=== PATIENT | male | born 1985 | race Caucasian/White ===

== ENCOUNTER 2016-08-06 08:50 | Emergency (ER) | payer MEDICAID ==
[~2016-08-06] VITALS: Ht 170.2 cm; Wt 83.9 kg
[2016-08-06 08:55] VITALS: BP_SYST 153
--- NOTE | 2016-08-06 09:05 | NUR ---
Patient to ER bed 7 to gown for evaluation. Side rails up. Report given to Clarissa NASCIMENTO.
--- NOTE | 2016-08-06 09:07 | NUR ---
C/O sore throat x 1 day with cough. Denies fever, tolerating PO intake well. son has sore throat and has been prescribed Augmentin.
--- NOTE | 2016-08-06 09:08 | NUR ---
ER Dr. Ortega at bedside examining patient.
[2016-08-06 09:22] VITALS: BP_SYST 149
--- NOTE | 2016-08-06 09:26 | NUR ---
Patient given written and verbal discharge instructions and verbalizes understanding. ER MD discussed with patient the results and treatment provided. Patient in stable condition. ID arm band removed. Rx of motrin and augmentin given. Patient educated on pain management and to follow up with PMD. Pain Scale 6/10, will medicate at home. Opportunity for questions provided and answered.
== END 2016-08-06 09:22 | disposition home or self-care (01) ==
LOC: SED 08:50
DX: J02.8 Acute pharyngitis due to other specified organisms (principal); B96.89 Other specified bacterial agents as the cause of diseases classified elsewhere; J45.909 Unspecified asthma, uncomplicated; Z88.8 Allergy status to other drugs, medicaments and biological substances
CPT/HCPCS: 99283

== ENCOUNTER 2016-11-26 23:09 | Emergency (ER) | payer MEDICAID ==
[~2016-11-26] VITALS: Ht 170.2 cm; Wt 65.8 kg
--- NOTE | 2016-11-26 23:09 | NUR ---
Patient to ER bed 4 to gown for evaluation. Side rails up. Report given to Karuna NASCIMENTO.
--- NOTE | 2016-11-26 23:10 | NUR ---
ER MD Mayes at bedside evaluating the patient
[2016-11-26] MEDS ORDERED: NACL 0.9% 1,000 ML IV ONE (23:11)
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
[2016-11-26] MEDS ORDERED: ASPIRIN 81 MG TAB.CHEW PO ONE (23:15)
[2016-11-26 23:16] VITALS: BP_SYST 135
--- NOTE | 2016-11-26 23:20 | NUR ---
# 20 gauge angiocath placed to right hand. Use of asceptic technique. Opsite placed over site. Blood return noted. Blood for lab drawn from site. Flushed with 10 cc of normal saline. No evidence of infiltration noted. Patient tolerated well.
[2016-11-26 23:21] LABS: BILIRUBIN,URINE NEGATIVE (NEGATIVE); CLARITY/URINE SL HAZY (CLEAR); COLOR,URINE YELLOW (YELLOW); GLUCOSE,URINE NEGATIVE (NEGATIVE); KETONES,URINE NEGATIVE (NEGATIVE); LEUKOCYTE ESTERASE ,URINE NEGATIVE (NEGATIVE); NITRITE, URINE NEGATIVE (NEGATIVE); PROTEIN URINE TRACE (NEGATIVE); UROBILINOGEN,URINE 0.2 (0.2-1.0)
--- NOTE | 2016-11-26 23:27 | NUR ---
Patient off the unit for CT scan via wheelchair
[2016-11-26 23:42] LABS: BASOPHILS # (AUTO) 0.2 K/uL (0.0-0.2); BASOPHILS % (AUTO) 1.9 % (0.0-2.0); EOSINOPHILS # (AUTO) 0.3 K/uL (0.0-0.4); EOSINOPHILS % (AUTO) 2.9 % (0.0-4.0); HEMATOCRIT 44.8 % (36-54); HEMOGLOBIN 14.5 g/dL (14.0-18.0); LYMPHOCYTES # (AUTO) 2.3 K/uL (1.0-5.5); LYMPHOCYTES % (AUTO) 20.8 % (20.5-51.5); MEAN CORPUSCULAR HEMOGLOBIN 28 pg (27-31); MEAN CORPUSCULAR HGB CONC 33 % (32-36); MEAN CORPUSCULAR VOLUME 86 fL (79.0-98.0); MONOCYTES # (AUTO) 0.9 K/uL (0.0-1.0); MONOCYTES % (AUTO) 8.4 % (1.7-9.3); NEUTROPHILS # (AUTO) 7.1 K/uL (1.8-7.7); PLATELET COUNT (AUTO) 249 K/uL (130-430); RED BLOOD CELL COUNT(AUTO) 5.21 MIL/uL (4.2-6.2); RED CELL DISTRIBUTION WIDTH 12.4 % (9.0-15.0); WHITE BLOOD COUNT (AUTO) 10.8 K/uL (4.8-10.8)
[2016-11-26 23:46] LABS: BARBITURATE, URINE NEGATIVE (NEG <=200); BENZODIAZEPINE, URINE NEGATIVE (NEG <=150); CANNABINOID, URINE NEGATIVE (NEG <=50); COCAINE, URINE NEGATIVE (NEG <=150); METHAMPHETAMINES SCREEN,URINE NEGATIVE (NEG <=500); OPIATE, URINE NEGATIVE (NEG <=100); PHENCYCLIDINE SCREEN,URINE NEGATIVE (NEG <=25); UR TRICYCLIC ANTIDEPRESSANTS NEGATIVE (NEG <=300); URINE AMPHETAMINE NEGATIVE (NEG <=500); URINE METHADONE NEGATIVE (NEG <=200); URINE OXYCODONE SCREEN NEGATIVE (NEG <=100); URINE PROPOXYPHENE SCREEN NEGATIVE (NEG <=300)
--- NOTE | 2016-11-26 23:46 | NUR ---
Mother at bedside.
[2016-11-26 23:57] LABS: CALCIUM 9.3 mg/dL (8.4-11.0); CREATININE 0.88 mg/dL (0.55-1.30); POTASSIUM 4.2 mmol/L (3.5-5.1)
[2016-11-27 00:03] LABS: BLOOD, URINE TRACE (NEGATIVE)
[2016-11-27 00:03] LABS: ALBUMIN 4.2 g/dL (3.4-4.8); PHOSPHORUS 3.2 mg/dL (2.7-4.5); TOTAL BILIRUBIN 0.6 mg/dL (0.0-1.0); TOTAL PROTEIN, SERUM 7.7 g/dL (6.4-8.3)
--- NOTE | 2016-11-27 00:28 | NUR ---
Patient resting, no signs of acute distress. VS WNL.
[2016-11-27 00:38] LABS: BACTERIA,URINE FEW /HPF (None Seen); MUCUS,URINE None Seen /LPF (None Seen)
[2016-11-27 00:43] LABS: PROTHROMBIN TIME 10.7 SECS (9.5-12.5)
[2016-11-27 00:55] VITALS: BP_SYST 129
--- NOTE | 2016-11-27 00:55 | NUR ---
Patient given written and verbal discharge instructions and verbalizes understanding. ER MD Mayes discussed with patient the results and treatment provided. Patient in stable condition. ID arm band removed. IV catheter removed intact and dressing applied, no active bleeding. Rx of tylenol with codeine & zofran given. Patient educated on pain management and to follow up with PMD. Pain Scale 0/10. Opportunity for questions provided and answered.
== END 2016-11-27 00:55 | disposition home or self-care (01) ==
LOC: SED 23:09
DX: R55 Syncope and collapse (principal); N20.0 Calculus of kidney; J45.909 Unspecified asthma, uncomplicated; Z87.442 Personal history of urinary calculi; Z88.8 Allergy status to other drugs, medicaments and biological substances
CPT/HCPCS: 36415; 74176; 80053; 80307; 81000; 82150; 82550; 83690; 84100; 84484; 85025; 85610; 85730; 87086; 96360; 99285; J7030

== ENCOUNTER 2018-02-17 16:04 | Emergency (ER) | payer MEDICAID ==
[~2018-02-17] VITALS: Ht 170.2 cm; Wt 86.2 kg
[2018-02-17 16:16] VITALS: BP_SYST 141
--- NOTE | 2018-02-17 16:21 | NUR ---
Patient to ER bed 05 to gown for evaluation. Side rails up. Report given to AZAM Nicolas
--- NOTE | 2018-02-17 16:40 | NUR ---
Pt AAOx4 ambulated into ED c/o L flank pain x 2 weeks. Pt went to see MD for kidney stones, was given Cipro. Pt DC abx after 2 days because he vomited after each intake. Pt was given Zofran and Hettinger [facility] at [facility], but zofran does not work and refuses to take norco. Pt passed kidney stone x 2 days ago, but cannot tolerate pain. No other injuries/complaints per pt/noted. Will continue to monitor.
--- NOTE | 2018-02-17 16:48 | NUR ---
ER Dr. Beebe at bedside examining patient.
[2018-02-17] MEDS ORDERED: NACL 0.9% 1,000 ML IV ONE (17:15)
[2018-02-17] MEDS ORDERED: KETOROLAC TROMETHAMINE 30 MG VIAL IVP ONE (17:15)
[2018-02-17 17:16] LABS: BILIRUBIN,URINE NEGATIVE (NEGATIVE); BLOOD, URINE NEGATIVE (NEGATIVE); CLARITY/URINE CLEAR (CLEAR); COLOR,URINE YELLOW (YELLOW); GLUCOSE,URINE NEGATIVE (NEGATIVE); KETONES,URINE NEGATIVE (NEGATIVE); LEUKOCYTE ESTERASE ,URINE NEGATIVE (NEGATIVE); NITRITE, URINE NEGATIVE (NEGATIVE); PH,URINE 6.5 (5.0-8.0); PROTEIN URINE NEGATIVE (NEGATIVE); UROBILINOGEN,URINE 0.2 (0.2-1.0)
[2018-02-17 17:39] LABS: BASOPHILS # (AUTO) 0.1 K/uL (0.0-0.2); EOSINOPHILS # (AUTO) 0.2 K/uL (0.0-0.4); EOSINOPHILS % (AUTO) 1.9 % (0.0-4.0); HEMATOCRIT 43.4 % (36-54); HEMOGLOBIN 13.9 g/dL (14.0-18.0); LYMPHOCYTES # (AUTO) 1.9 K/uL (1.0-5.5); LYMPHOCYTES % (AUTO) 19.8 % (20.5-51.5); MEAN CORPUSCULAR HEMOGLOBIN 28 pg (27-31); MEAN CORPUSCULAR HGB CONC 32 % (32-36); MEAN CORPUSCULAR VOLUME 87 fL (79.0-98.0); MONOCYTES # (AUTO) 0.7 K/uL (0.0-1.0); MONOCYTES % (AUTO) 7.6 % (1.7-9.3); NEUTROPHILS # (AUTO) 6.6 K/uL (1.8-7.7); NEUTROPHILS % (AUTO) 69.7 % (40.0-70.0); PLATELET COUNT (AUTO) 267 K/uL (130-430); RED CELL DISTRIBUTION WIDTH 12.4 % (9.0-15.0); WHITE BLOOD COUNT (AUTO) 9.5 K/uL (4.8-10.8)
[2018-02-17 17:41] LABS: CALCIUM 9.3 mg/dL (8.4-11.0); CREATININE 0.95 mg/dL (0.55-1.30)
[2018-02-17 17:47] LABS: ALBUMIN 3.8 g/dL (3.4-4.8); TOTAL BILIRUBIN 0.3 mg/dL (0.0-1.0)
--- NOTE | 2018-02-17 18:33 | NUR ---
Note undone in EDM - 02/17/18 at 1851 by [email or web address] Patient given written and verbal discharge instructions and verbalizes understanding. ER MD Beebe discussed with patient the results and treatment provided. Patient in stable condition. ID arm band removed. IV catheter removed intact and dressing applied, no active bleeding. No Rx given. Patient educated on pain management and to follow up with PMD. Pain Scale 0. Opportunity for questions provided and answered. Medication side effect fact sheet provided.
[2018-02-17 19:40] VITALS: BP_SYST 134
--- NOTE | 2018-02-17 19:40 | NUR ---
Patient given written and verbal discharge instructions and verbalizes understanding. ER MD SHUKLA discussed with patient the results and treatment provided. Patient in stable condition. ID arm band removed. IV catheter removed intact and dressing applied, no active bleeding. Rx of TRAMADOL given. Patient educated on pain management and to follow up with PMD. Pain Scale 2/10. Opportunity for questions provided and answered. Medication side effect fact sheet provided.
== END 2018-02-17 19:40 | disposition home or self-care (01) ==
LOC: SED 16:04
DX: R10.9 Unspecified abdominal pain (principal); J45.909 Unspecified asthma, uncomplicated; R03.0 Elevated blood-pressure reading, without diagnosis of hypertension; Z88.8 Allergy status to other drugs, medicaments and biological substances
CPT/HCPCS: 36415; 74176; 80053; 81003; 85025; 96361; 96374; 99285; J1885; J7030

== ENCOUNTER 2018-09-01 07:53 | Emergency (ER) | payer MEDICAID ==
[~2018-09-01] VITALS: Ht 170.2 cm; Wt 83.9 kg
[2018-09-01 08:09] VITALS: BP_SYST 149
[2018-09-01] MEDS ORDERED: NACL 0.9% 1,000 ML IV SCH (08:13)
[2018-09-01] MEDS ORDERED: KETOROLAC TROMETHAMINE 30 MG VIAL IVP ONE (08:15)
[2018-09-01] MEDS ORDERED: VANCOMYCIN HCL 1 MG in D5W 250 ML IV ONE (08:15)
[2018-09-01] MEDS ORDERED: PIPERACILLIN/TAZO 4.5 GM in NS 100 ML IV ONE (08:15)
[2018-09-01 08:49] LABS: BASOPHILS # (AUTO) 0.1 K/uL (0.0-0.2); BASOPHILS % (AUTO) 0.8 % (0.0-2.0); EOSINOPHILS # (AUTO) 0.2 K/uL (0.0-0.4); EOSINOPHILS % (AUTO) 1.6 % (0.0-4.0); HEMATOCRIT 45.6 % (36-54); HEMOGLOBIN 14.8 g/dL (14.0-18.0); LYMPHOCYTES # (AUTO) 1.5 K/uL (1.0-5.5); LYMPHOCYTES % (AUTO) 12.8 % (20.5-51.5); MEAN CORPUSCULAR HEMOGLOBIN 28 pg (27-31); MEAN CORPUSCULAR HGB CONC 33 % (32-36); MEAN CORPUSCULAR VOLUME 86 fL (79.0-98.0); MONOCYTES # (AUTO) 0.9 K/uL (0.0-1.0); MONOCYTES % (AUTO) 8.1 % (1.7-9.3); NEUTROPHILS # (AUTO) 8.7 K/uL (1.8-7.7); NEUTROPHILS % (AUTO) 76.7 % (40.0-70.0); PLATELET COUNT (AUTO) 239 K/uL (130-430); RED CELL DISTRIBUTION WIDTH 13.3 % (9.0-15.0); WHITE BLOOD COUNT (AUTO) 11.4 K/uL (4.8-10.8)
[2018-09-01 09:04] LABS: CALCIUM 9.3 mg/dL (8.4-11.0); CREATININE 0.86 mg/dL (0.55-1.30); POTASSIUM 3.8 mmol/L (3.5-5.1)
[2018-09-01 09:50] VITALS: BP_SYST 140
== END 2018-09-01 09:50 | disposition home or self-care (01) ==
LOC: SED 07:53
DX: L03.116 Cellulitis of left lower limb (principal); J45.909 Unspecified asthma, uncomplicated; Z87.442 Personal history of urinary calculi; Z88.8 Allergy status to other drugs, medicaments and biological substances
CPT/HCPCS: 36415; 80048; 85025; 96365; 96375; 99283; J1885; J7030

== ENCOUNTER 2018-09-01 22:48 | Emergency (ER) | payer MEDICAID ==
[~2018-09-01] VITALS: Ht 167.6 cm; Wt 81.6 kg
[2018-09-01 23:12] VITALS: BP_SYST 145
[2018-09-02 00:20] VITALS: BP_SYST 138
== END 2018-09-02 00:20 | disposition home or self-care (01) ==
LOC: SED 22:48
DX: S90.462A Insect bite (nonvenomous), left great toe, initial encounter (principal); J45.909 Unspecified asthma, uncomplicated; Z87.442 Personal history of urinary calculi; Z88.8 Allergy status to other drugs, medicaments and biological substances; W57.XXXA Bitten or stung by nonvenomous insect and other nonvenomous arthropods, initial encounter; Y93.89 Activity, other specified; Y92.89 Other specified places as the place of occurrence of the external cause; Y99.8 Other external cause status
CPT/HCPCS: 87070-TC; 87186-TC; 99283

== ENCOUNTER 2018-10-15 17:49 | Emergency (ER) | payer MEDICAID ==
[~2018-10-15] VITALS: Ht 170.2 cm; Wt 83.9 kg
[2018-10-15 17:50] VITALS: BP_SYST 140
--- NOTE | 2018-10-15 17:50 | NUR ---
Babs melton in ED - 10/15/18 at 1828 by [email or web address] ELISSA Jamison at bedside examining patient.
--- NOTE | 2018-10-15 17:50 | NUR ---
Patient to ER bed 04 to gown for evaluation. Side rails up. Will assume care.
--- NOTE | 2018-10-15 17:55 | NUR ---
Patient brought in complaining of LLE discomfort secondary to a insect bite x 2 days. Denies any pain at this time. No other complaints/injuries per patient or as noted. Will continue to monitor.
--- NOTE | 2018-10-15 18:13 | NUR ---
ELISSA Jamison at bedside examining patient.
[2018-10-15 18:20] VITALS: BP_SYST 140
--- NOTE | 2018-10-15 18:20 | NUR ---
Patient given written and verbal discharge instructions and verbalizes understanding. ER MD Jamison discussed with patient the results and treatment provided. Patient in stable condition. ID arm band removed. Rx of Keflex given. Patient educated on pain management and to follow up with PMD in 3-5 days. Pain Scale 0/10 Opportunity for questions provided and answered. Medication side effect fact sheet provided.
== END 2018-10-15 18:20 | disposition home or self-care (01) ==
LOC: SED 17:49
DX: S80.862A Insect bite (nonvenomous), left lower leg, initial encounter (principal); L08.89 Other specified local infections of the skin and subcutaneous tissue; J45.909 Unspecified asthma, uncomplicated; R03.0 Elevated blood-pressure reading, without diagnosis of hypertension; Z87.442 Personal history of urinary calculi; W57.XXXA Bitten or stung by nonvenomous insect and other nonvenomous arthropods, initial encounter; Y93.89 Activity, other specified; Y92.89 Other specified places as the place of occurrence of the external cause; Y99.8 Other external cause status
CPT/HCPCS: 99283

== ENCOUNTER 2018-11-07 16:51 | Emergency (ER) | payer MEDICAID ==
[~2018-11-07] VITALS: Ht 170.2 cm; Wt 83.9 kg
[2018-11-07 17:05] VITALS: BP_SYST 155
--- NOTE | 2018-11-07 17:10 | NUR ---
Patient to ER bed 7 to gown for evaluation. Side rails up. Report given to Jesus NASCIMENTO.
--- NOTE | 2018-11-07 17:11 | NUR ---
Pt is here for swelling to right eye lid, moderate swelling noted to inner corner of the eye. Pt is resting in bed comfortable waiting for MD vu. Pt denied pain to area at moment.
--- NOTE | 2018-11-07 17:40 | NUR ---
ER Dr. Diana at bedside examining patient.
--- NOTE | 2018-11-07 17:45 | NUR ---
Note undone in EDM - 11/07/18 at 1757 by [email or web address] Patient given written and verbal discharge instructions and verbalizes understanding. ER discussed with patient the results and treatment provided. Patient in stable condition. ID arm band removed. Rx of Keflex, Prednisone given. Patient educated on pain management and to follow up with PMD. Pain Scale 0/10. Opportunity for questions provided and answered. Medication side effect fact sheet provided.
--- NOTE | 2018-11-07 17:55 | NUR ---
Patient given written and verbal discharge instructions and verbalizes understanding. ER MD discussed with patient the results and treatment provided. Patient in stable condition. ID arm band removed. Rx of Keflex, Prednisone given. Patient educated on pain management and to follow up with PMD. Pain Scale 0/10. Opportunity for questions provided and answered. Medication side effect fact sheet provided.
== END 2018-11-07 17:57 | disposition home or self-care (01) ==
LOC: SED 16:51
DX: L03.213 Periorbital cellulitis (principal); H00.011 Hordeolum externum right upper eyelid; R03.0 Elevated blood-pressure reading, without diagnosis of hypertension; J45.909 Unspecified asthma, uncomplicated; Z87.442 Personal history of urinary calculi; Z88.8 Allergy status to other drugs, medicaments and biological substances
CPT/HCPCS: 99283

== ENCOUNTER 2019-03-21 14:16 | Emergency (ER) | payer MEDICAID ==
[~2019-03-21] VITALS: Ht 170.2 cm; Wt 86.2 kg
[2019-03-21 14:42] VITALS: BP_SYST 120
--- NOTE | 2019-03-21 15:44 | NUR ---
BROUGHT BACK TO BED IN HALLWAY AND REPORT GIVEN TO ASHLEY
--- NOTE | 2019-03-21 15:50 | NUR ---
DR PETERSEN AT BEDSIDE FOR EVALUATION
[2019-03-21] MEDS ORDERED: VANCOMYCIN HCL 1,000 MG in NS 250 ML IV ONE (16:00)
--- NOTE | 2019-03-21 16:12 | NUR ---
pt arrived from home s/p possible sipder bite on Friday. Pt reports picking at the bite and noticied that the bite was getting worse.
--- NOTE | 2019-03-21 16:15 | NUR ---
# 20 gauge angiocath placed to LAC. Use of asceptic technique. Opsite placed over site. Blood return noted. Blood for lab drawn from site. Flushed with 10 cc of normal saline. No evidence of infiltration noted. Patient tolerated well.
[2019-03-21] MEDS ORDERED: VANCOMYCIN HCL 1000 MG/VIAL IV ONE (16:28)
--- NOTE | 2019-03-21 16:40 | NUR ---
Vanco currently infusing per MD order.
--- NOTE | 2019-03-21 17:18 | NUR ---
LLE wound cx collected and sent to the lab
[2019-03-21 17:52] VITALS: BP_SYST 120
--- NOTE | 2019-03-21 17:53 | NUR ---
Patient given written and verbal discharge instructions and verbalizes understanding. ER MD discussed with patient the results and treatment provided. Patient in stable condition. ID arm band removed. IV catheter removed intact and dressing applied, no active bleeding. Rx of Bactrim and Keflex given. Patient educated on pain management and to follow up with PMD. Pain Scale 3/10.Opportunity for questions provided and answered. Medication side effect fact sheet provided.
== END 2019-03-21 17:53 | disposition home or self-care (01) ==
LOC: SED 14:16
DX: L03.116 Cellulitis of left lower limb (principal); J45.909 Unspecified asthma, uncomplicated; Z88.8 Allergy status to other drugs, medicaments and biological substances
CPT/HCPCS: 36415; 87040; 87070; 96365; 99283; J3370; 87186-TC

== ENCOUNTER 2019-04-13 08:08 | Emergency (ER) | payer MEDICAID ==
[~2019-04-13] VITALS: Ht 170.2 cm; Wt 83.9 kg
[2019-04-13 08:20] VITALS: BP_SYST 120
--- NOTE | 2019-04-13 08:25 | NUR ---
pt arrives from home w/ c/o a sore throat x 2 days. Pt also reports a cough. Pt is currently afebrile.
--- NOTE | 2019-04-13 08:26 | NUR ---
Patient to ER bed 8 to gown for evaluation. Side rails up.
--- NOTE | 2019-04-13 08:28 | NUR ---
ER at bedside examining patient.
[2019-04-13 08:47] VITALS: BP_SYST 120
--- NOTE | 2019-04-13 08:49 | NUR ---
Patient given written and verbal discharge instructions and verbalizes understanding. ER MD discussed with patient the results and treatment provided. Patient in stable condition. ID arm band removed. Rx of Prednsione, Cepacol, and Zithromax given. Patient educated on pain management and to follow up with PMD. Pain Scale 3/10. Opportunity for questions provided and answered. Medication side effect fact sheet provided.
== END 2019-04-13 08:47 | disposition home or self-care (01) ==
LOC: SED 08:08
DX: K12.2 Cellulitis and abscess of mouth (principal); J45.909 Unspecified asthma, uncomplicated; Z88.8 Allergy status to other drugs, medicaments and biological substances
CPT/HCPCS: 99283

== ENCOUNTER 2019-07-09 13:17 | Emergency (ER) | payer MEDICAID ==
[~2019-07-09] VITALS: Ht 170.2 cm; Wt 89.8 kg
[2019-07-09 13:53] VITALS: BP_SYST 114
[2019-07-09] MEDS ORDERED: KETOROLAC TROMETHAMINE 60 MG/2 ML VIAL IM ONE (14:00)
[2019-07-09] MEDS ORDERED: PREDNISONE 20 MG TABLET PO ONE (14:00)
[2019-07-09 14:40] VITALS: BP_SYST 116
[2019-07-09] MEDS ORDERED: IBUPROFEN 600 MG TABLET PO ONE (15:00)
[2019-07-09] MEDS ORDERED: HYDROcodone/ACETAMIN 5-325 MG TAB (NORCO/ VICODIN) PO ONE (15:00)
== END 2019-07-09 14:40 | disposition home or self-care (01) ==
LOC: SED 13:17
DX: J11.1 Influenza due to unidentified influenza virus with other respiratory manifestations (principal); J45.909 Unspecified asthma, uncomplicated; Z87.442 Personal history of urinary calculi; Z88.8 Allergy status to other drugs, medicaments and biological substances
CPT/HCPCS: 71045; 99284; J1885; J7512

== ENCOUNTER 2019-10-25 07:34 | Emergency (ER) | payer MEDICAID ==
[~2019-10-25] VITALS: Ht 170.2 cm; Wt 85.3 kg
[2019-10-25 07:47] VITALS: BP_SYST 141
[2019-10-25 08:00] VITALS: BP_SYST 141
== END 2019-10-25 08:00 | disposition home or self-care (01) ==
LOC: SED 07:34
DX: L03.818 Cellulitis of other sites (principal); J45.909 Unspecified asthma, uncomplicated; Z57.2 Occupational exposure to dust; Z88.8 Allergy status to other drugs, medicaments and biological substances
CPT/HCPCS: 99283

== ENCOUNTER 2019-10-31 13:32 | Emergency (ER) | payer MEDICAID ==
[~2019-10-31] VITALS: Ht 170.2 cm; Wt 85.3 kg
--- NOTE | 2019-10-31 13:40 | NUR ---
RECEIVED AND IN ROOM
[2019-10-31 13:45] VITALS: BP_SYST 143
--- NOTE | 2019-10-31 13:53 | NUR ---
DR FLORES IN TO ASSESS
--- NOTE | 2019-10-31 13:54 | NUR ---
C/O RAST AND ITCHING TO ARM/LEGS. CALM, ALERT, RESP UNLABORED, COMMUNICATES CLEARLY, DENIES CP/SOB. WAS TREATED WITH ABX 1 WEEK AGO AND HERE TODAY DUE TO ITCHING.
[2019-10-31] MEDS ORDERED: PREDNISONE 20 MG TABLET PO ONE (14:30)
[2019-10-31] MEDS ORDERED: DIPHENHYDRAMINE HCL 50 MG CAPSULE PO ONE (14:30)
[2019-10-31 14:35] VITALS: BP_SYST 143
--- NOTE | 2019-10-31 14:39 | NUR ---
Patient given written and verbal discharge instructions and verbalizes understanding. ER MD discussed with patient the results and treatment provided. Patient in stable condition. Rx of BRANDONISONEESTELLEADRYL given. Patient educated on pain management and to follow up with PMD. Pain Scale . Opportunity for questions provided and answered. Medication side effect fact sheet provided.
== END 2019-10-31 14:35 | disposition home or self-care (01) ==
LOC: SED 13:32
DX: L25.9 Unspecified contact dermatitis, unspecified cause (principal); L29.9 Pruritus, unspecified; J45.909 Unspecified asthma, uncomplicated
CPT/HCPCS: 99283; J7512; Q0163

== ENCOUNTER 2019-12-06 15:06 | Emergency (ER) | payer MEDICAID ==
[~2019-12-06] VITALS: Ht 172.7 cm; Wt 86.2 kg
[2019-12-06 15:23] VITALS: BP_SYST 150
--- NOTE | 2019-12-06 15:55 | NUR ---
Patient to ER bed 07 to gown for evaluation. Side rails up.
--- NOTE | 2019-12-06 15:59 | NUR ---
RECEIVED AND IN ROOM, PT HERE FOR BACK PAIN, GUARDED GAIT BUT STEADY
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
[2019-12-06] MEDS ORDERED: fentaNYL CITRATE/PF 100 MCG/2 ML AMP IM ONE (16:30)
--- NOTE | 2019-12-06 17:41 | NUR ---
Patient given written and verbal discharge instructions and verbalizes understanding. ER MD discussed with patient the results and treatment provided. Patient in stable condition. ID arm band removed. Patient educated on pain management and to follow up with PMD. Pain Scale . Opportunity for questions provided and answered. Medication side effect fact sheet provided.
--- NOTE | 2019-12-06 17:42 | NUR ---
WALKED OFF UNIT STEADY WITH ACI
[2019-12-06 17:43] VITALS: BP_SYST 144
== END 2019-12-06 17:43 | disposition home or self-care (01) ==
LOC: SED 15:06
DX: M54.6 Pain in thoracic spine (principal); M54.5 Low back pain; J45.909 Unspecified asthma, uncomplicated; Z88.8 Allergy status to other drugs, medicaments and biological substances
CPT/HCPCS: 72100; 96372; 99283; J3010

== ENCOUNTER 2019-12-07 09:45 | Emergency (ER) | payer MEDICAID ==
[~2019-12-07] VITALS: Ht 172.7 cm; Wt 86.2 kg
[2019-12-07 09:52] VITALS: BP_SYST 129
[2019-12-07] MEDS ORDERED: LIDOCAINE 1% 10 MG/ML, 20 ML MDV INJ ONE (10:15)
[2019-12-07] MEDS ORDERED: KETOROLAC TROMETHAMINE 60 MG/2 ML VIAL IM ONE (10:45)
[2019-12-07 11:44] VITALS: BP_SYST 129
== END 2019-12-07 11:44 | disposition home or self-care (01) ==
LOC: SED 09:45
DX: S01.01XA Laceration without foreign body of scalp, initial encounter (principal); R55 Syncope and collapse; M54.6 Pain in thoracic spine; R11.2 Nausea with vomiting, unspecified; J45.909 Unspecified asthma, uncomplicated; Z87.442 Personal history of urinary calculi; V49.9XXA Car occupant (driver) (passenger) injured in unspecified traffic accident, initial encounter; Y93.89 Activity, other specified; Y92.413 State road as the place of occurrence of the external cause; Y99.8 Other external cause status
CPT/HCPCS: 12001; 70450; 72125; 72128; 93005; 96372; 99285; J1885; J2001

== ENCOUNTER 2019-12-15 08:02 | Emergency (ER) | payer MEDICAID ==
[~2019-12-15] VITALS: Ht 172.7 cm; Wt 86.2 kg
[2019-12-15 08:05] VITALS: BP_SYST 137
== END 2019-12-15 08:42 | disposition home or self-care (01) ==
LOC: SED 08:02
DX: Z48.02 Encounter for removal of sutures (principal); Z87.442 Personal history of urinary calculi
CPT/HCPCS: 99281

== ENCOUNTER 2020-02-01 14:00 | Emergency (ER) | payer MEDICAID ==
[~2020-02-01] VITALS: Ht 170.2 cm; Wt 90.3 kg
[2020-02-01 14:08] VITALS: BP_SYST 141
--- NOTE | 2020-02-01 14:12 | NUR ---
Patient came in for evaluation of his left ankle. Patient was at work today and stepped into a pothole, twisted his ankle, and heard a "pop." Patient is complaining of left ankle pain, it is swollen and he is unable to bear weight on it.
--- NOTE | 2020-02-01 14:12 | NUR ---
Patient to ER bed 3 to gown for evaluation. Side rails up. Report given to AZAM Solo.
--- NOTE | 2020-02-01 14:19 | NUR ---
ELISSA Altamirano at bedside examining patient. Addendum: 02/01/20 at 1706 by [email or web address] ELISSA Roca at bedside examining patient.
[2020-02-01] MEDS ORDERED: IBUPROFEN 800 MG TABLET PO ONE (14:45)
--- NOTE | 2020-02-01 14:52 | NUR ---
Administered Motrin PO as ordered by Dr. Norris. Patient tolerated the medications well. See eMAR for details.
--- NOTE | 2020-02-01 15:21 | NUR ---
Patient given written and verbal discharge instructions and verbalizes understanding. ER MD discussed with patient the results and treatment provided. Patient in stable condition. ID arm band removed. Rx of Motrin given. Patient educated on pain management and to follow up with PMD. Pain Scale 0/10. Opportunity for questions provided and answered. Medication side effect fact sheet provided.
[2020-02-01 15:25] VITALS: BP_SYST 141
== END 2020-02-01 15:25 | disposition home or self-care (01) ==
LOC: SED 14:00
DX: S93.402A Sprain of unspecified ligament of left ankle, initial encounter (principal); J45.909 Unspecified asthma, uncomplicated; N28.9 Disorder of kidney and ureter, unspecified; Z88.8 Allergy status to other drugs, medicaments and biological substances
CPT/HCPCS: 99283

== ENCOUNTER 2020-05-31 00:39 | Emergency (ER) | payer MEDICAID ==
[~2020-05-31] VITALS: Ht 170.2 cm; Wt 86.2 kg
[2020-05-31 00:45] VITALS: BP_SYST 118
--- NOTE | 2020-05-31 00:45 | NUR ---
Received patient to ER via BLS w/ c/o sob and cough. Patient tested covid (+) x2 days ago 05/29/20 but states symptoms worsened today. Introduced self to patient, positioned for comfort and safety w/ bed to low position sr up, continue to monitor. Patient resting quietly. No acute distress noted. Vital signs within normal range.
--- NOTE | 2020-05-31 00:45 | NUR ---
PT TRIAGED AND PLACED IN BED 5, ATTACHED TO MONITOR
--- NOTE | 2020-05-31 01:07 | NUR ---
ER at bedside examining patient.
[2020-05-31 01:40] VITALS: BP_SYST 118
--- NOTE | 2020-05-31 01:42 | NUR ---
Patient given written and verbal discharge instructions and verbalizes understanding. ER MD discussed with patient the results and treatment provided. Patient in stable condition. ID arm band removed. IV catheter removed intact and dressing applied, no active bleeding. Rx of azithromycin, zinc sulfate, albuterol, Tessalon given. Patient educated on pain management and to follow up with PMD. Pain Scale 0. Opportunity for questions provided and answered. Medication side effect fact sheet provided.
== END 2020-05-31 01:40 | disposition home or self-care (01) ==
LOC: SED 00:39
DX: U07.1 COVID-19 (principal); J45.909 Unspecified asthma, uncomplicated; Z87.442 Personal history of urinary calculi
CPT/HCPCS: 71045; 99283

== ENCOUNTER 2020-09-21 10:30 | Emergency (ER) | payer MEDICAID ==
[~2020-09-21] VITALS: Ht 167.6 cm; Wt 70.3 kg
[2020-09-21 10:40] VITALS: BP_SYST 137
[2020-09-21] MEDS ORDERED: KETOROLAC TROMETHAMINE 60 MG/2 ML VIAL IM ONE (10:45)
[2020-09-21] MEDS ORDERED: NAPR-1172 PO (12:04)
[2020-09-21 12:08] VITALS: BP_SYST 129
== END 2020-09-21 12:09 | disposition home or self-care (01) ==
LOC: SED 10:30
DX: G44.209 Tension-type headache, unspecified, not intractable (principal); J45.909 Unspecified asthma, uncomplicated; Z88.8 Allergy status to other drugs, medicaments and biological substances; Z79.899 Other long term (current) drug therapy
CPT/HCPCS: 70450; 76376; 96372; 99284; J1885

== ENCOUNTER 2021-03-05 07:32 | Emergency (ER) | payer MEDICAID ==
[~2021-03-05] VITALS: Ht 170.2 cm; Wt 90.7 kg
[~2021-03-05 07:32] MED LIST: NAPR-1172 PO
[2021-03-05 07:45] VITALS: BP_SYST 114
[2021-03-05 09:53] VITALS: BP_SYST 114
== END 2021-03-05 09:40 | disposition home or self-care (01) ==
LOC: SED 07:32
DX: M79.672 Pain in left foot (principal); J45.909 Unspecified asthma, uncomplicated; Z88.8 Allergy status to other drugs, medicaments and biological substances; Z79.899 Other long term (current) drug therapy
CPT/HCPCS: 99283

== ENCOUNTER 2021-07-06 15:05 | Emergency (ER) | payer MEDICAID ==
[~2021-07-06] VITALS: Ht 170.2 cm; Wt 86.2 kg
[2021-07-06 15:22] VITALS: BP_SYST 126
--- NOTE | 2021-07-06 15:31 | NUR ---
Patient to ER bed 03 to gown for evaluation. Side rails up. Report given to AZAM Umaña
--- NOTE | 2021-07-06 15:45 | NUR ---
DR WHITEHEAD IN ROOM FOR EXAM .
--- NOTE | 2021-07-06 15:52 | NUR ---
Pt to right eyelid pain, watery, pus, and blurred vision for the last 3 days. Rt eye swollen, erythema to orbital area. Pt denies any acute injury. 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
[2021-07-06] MEDS ORDERED: ERYEYE RIGHT EYE (16:07)
[2021-07-06] MEDS ORDERED: POLYTRIM RIGHT EYE (16:07)
--- NOTE | 2021-07-06 16:16 | NUR ---
VISUAL ACUITY PERFORMED BY DEB MI
[2021-07-06 16:37] VITALS: BP_SYST 126
--- NOTE | 2021-07-06 16:40 | NUR ---
Patient given written and verbal discharge instructions and verbalizes understanding. ER MD discussed with patient the results and treatment provided. Patient in stable condition. ID arm band removed. Rx of ERYTHOMYCIN given. Patient educated on pain management and to follow up with PMD. Pain Scale . Opportunity for questions provided and answered. Medication side effect fact sheet provided.
== END 2021-07-06 16:40 | disposition home or self-care (01) ==
LOC: SED 15:05
DX: H01.001 Unspecified blepharitis right upper eyelid (principal); J45.909 Unspecified asthma, uncomplicated; Z88.8 Allergy status to other drugs, medicaments and biological substances; Z79.899 Other long term (current) drug therapy
CPT/HCPCS: 99283

== ENCOUNTER 2022-02-17 15:49 | Emergency (ER) | payer MEDICAID ==
[~2022-02-17] VITALS: Ht 175.3 cm; Wt 81.6 kg
[~2022-02-17 15:49] MED LIST changes: +D-ME118S48 PO; +ERYEYE RIGHT EYE; +POLYTRIM RIGHT EYE
[2022-02-17 15:50] VITALS: BP_SYST 146
--- NOTE | 2022-02-17 15:55 | NUR ---
Patient triaged and placed in waiting room. VSS and patient appears in no acute distress at this time. Accompanied by SELF, awaiting available bed, and MD notified of need for MSE.
--- NOTE | 2022-02-17 17:36 | NUR ---
Patient to ER bed H2 to gown for evaluation. Side rails up.
--- NOTE | 2022-02-17 17:40 | NUR ---
Pt brought by self, A&Ox4, pt presents to ER with bugbite/redness on R lower leg x 5 days, patient taking cephalexin but symptoms not improvent , afebrile, will cont to monitor.
[2022-02-17] MEDS ORDERED: SULF1TAB48 PO (17:59)
[2022-02-17] MEDS ORDERED: CLIN-142 PO (17:59)
[2022-02-17] MEDS ORDERED: BACITRACIN 1 GM OINT TP ONE (18:00)
[2022-02-17] MEDS ORDERED: CLINDAMYCIN HCL 150 MG CAPSULE PO ONE (18:30)
[2022-02-17] MEDS ORDERED: SULFAMETHOXAZOLE/TRIMETHOPR DS 1 TABLET PO ONE (18:30)
--- NOTE | 2022-02-17 18:36 | NUR ---
Patient given written and verbal discharge instructions and verbalizes understanding. ER MD discussed with patient the results and treatment provided. Patient in stable condition. ID arm band removed. Rx of CLINDAMYCIN, BACTRIM given. Patient educated on pain management and to follow up with PMD. Pain Scale 0/10. Opportunity for questions provided and answered. Medication side effect fact sheet provided.
== END 2022-02-17 18:35 | disposition home or self-care (01) ==
LOC: SED 15:49
DX: L03.115 Cellulitis of right lower limb (principal); R22.41 Localized swelling, mass and lump, right lower limb; J45.909 Unspecified asthma, uncomplicated; Z88.8 Allergy status to other drugs, medicaments and biological substances; Z79.899 Other long term (current) drug therapy
CPT/HCPCS: 99284

== ENCOUNTER 2022-09-17 14:39 | Emergency (ER) | payer MEDICAID ==
[~2022-09-17] VITALS: Ht 167.6 cm; Wt 68.0 kg
[~2022-09-17 14:39] MED LIST changes: +CLIN-142 PO; +SULF1TAB48 PO
[2022-09-17 14:56] VITALS: BP_SYST 147
[2022-09-17] MEDS ORDERED: PRED20TA PO (16:19)
[2022-09-17] MEDS ORDERED: PSEU30TA36 PO (16:19)
[2022-09-17] MEDS ORDERED: ALBU2.5V7 INH (16:19)
[2022-09-17 16:54] VITALS: BP_SYST 147
== END 2022-09-17 16:54 | disposition home or self-care (01) ==
LOC: SED 14:39
DX: J45.909 Unspecified asthma, uncomplicated (principal); Z88.8 Allergy status to other drugs, medicaments and biological substances; Z20.822 Contact with and (suspected) exposure to COVID-19
CPT/HCPCS: 36415; 71045; 93005; 99285

== ENCOUNTER 2023-02-24 10:36 | Emergency (ER) | payer MEDICAID ==
[~2023-02-24] VITALS: Ht 170.2 cm; Wt 86.2 kg
[~2023-02-24 10:36] MED LIST changes: +ALBU2.5V7 INH; +BROM118S61 PO; -D-ME118S48 PO; +PRED20TA PO; +PSEU30TA36 PO
[2023-02-24 11:11] VITALS: BP_SYST 159; PULSE 67; RESP 17; TEMP 97.8; O2SAT 96
== END 2023-02-24 14:35 | disposition left against medical advice (07) ==
LOC: SED 10:36
DX: J02.9 Acute pharyngitis, unspecified (principal); Z53.21 Procedure and treatment not carried out due to patient leaving prior to being seen by health care provider
CPT/HCPCS: 99281

== ENCOUNTER 2023-03-12 13:45 | Emergency (ER) | payer MEDICAID ==
[~2023-03-12] VITALS: Ht 172.7 cm; Wt 90.7 kg
[2023-03-12 13:57] VITALS: BP_SYST 148; PULSE 84; RESP 18; TEMP 98.3; O2SAT 95
[2023-03-12] MEDS ORDERED: LIDOCAINE 1%, 20 ML MDV 20 ML ONE (15:37)
[2023-03-12] MEDS ORDERED: LIDOCAINE 1% 10 MG/ML, 20 ML MDV INJ ONE (15:45)
[2023-03-12] MEDS ORDERED: BACITRACIN 1 GM OINT TP ONE (15:45)
[2023-03-12 15:56] VITALS: BP_SYST 148; PULSE 84; RESP 18; TEMP 98.3; O2SAT 95
== END 2023-03-12 15:55 | disposition home or self-care (01) ==
LOC: SED 13:45
DX: S61.412A Laceration without foreign body of left hand, initial encounter (principal); J45.909 Unspecified asthma, uncomplicated; Z88.8 Allergy status to other drugs, medicaments and biological substances; Z79.899 Other long term (current) drug therapy; W25.XXXA Contact with sharp glass, initial encounter; Y93.89 Activity, other specified; Y92.89 Other specified places as the place of occurrence of the external cause; Y99.8 Other external cause status
CPT/HCPCS: 99282; 12002; J2001

== ENCOUNTER 2023-03-17 07:44 | Emergency (ER) | payer MEDICAID ==
[~2023-03-17] VITALS: Ht 172.7 cm; Wt 90.7 kg
[2023-03-17 07:56] VITALS: BP_SYST 132; PULSE 67; RESP 16; TEMP 97.9; O2SAT 97
[2023-03-17 08:24] VITALS: TEMP 97.9
== END 2023-03-17 08:19 | disposition home or self-care (01) ==
LOC: SED 07:44
DX: S61.411D Laceration without foreign body of right hand, subsequent encounter (principal); J45.909 Unspecified asthma, uncomplicated; Z88.8 Allergy status to other drugs, medicaments and biological substances; Z79.899 Other long term (current) drug therapy; X58.XXXD Exposure to other specified factors, subsequent encounter
CPT/HCPCS: 99281